=== PATIENT | male | born 1990 | race African-American/Black ===

== ENCOUNTER 2022-10-16 13:46 | Emergency (ER) | payer OTHER ==
[~2022-10-16] VITALS: Ht 167.6 cm; Wt 97.7 kg
[2022-10-16] MEDS ORDERED: IBUPROFEN 600 MG TABLET PO ONE (15:00)
[2022-10-16 15:45] VITALS: BP 100/64
== END 2022-10-16 16:25 ==
LOC: EMS 13:54
DX: S92.351A Displaced fracture of fifth metatarsal bone, right foot, initial encounter for closed fracture (principal); F12.90 Cannabis use, unspecified, uncomplicated; X58.XXXA Exposure to other specified factors, initial encounter; Y93.89 Activity, other specified; Y92.89 Other specified places as the place of occurrence of the external cause; Y99.8 Other external cause status
CPT/HCPCS: 29105; 99283